=== PATIENT | male | born 1950 | race Caucasian/White ===

== ENCOUNTER → 2022-08-20 | Outpatient (CLI) | payer MEDICARE, SELFPAY ==
--- NOTE | 2022-08-20 | PROSBIL_PTH ---
PATIENT: ELIZABETH HE LOC: [facility] U#:[id number] AGE/SX: 72/M ROOM: RE08/20/[address]: Dr. Bogdan Miller MD : 1950 BED: DIS: 08/20/2022 SPEC #: [id number] RECD: 08/20/22 16:13 STATUS: MARIA G BURNETTE #: [id number] AYLIN: 08/20/22 00:[address]: Bogdan Miller DEPT: SURGICAL PATHOLOGY RECD BY: Alayna Islas Tissues: A - PROSTATE RIGHT B - PROSTATE RIGHT C - PROSTATE RIGHT D - PROSTATE LEFT E - PROSTATE LEFT F - PROSTATE LEFT Procedures: PROSTATE BX HEADER OPERATION: Prostate biopsy PRE-OP DIAGNOSIS: Elevated PSA TISSUE SUBMITTED: A - Right apex, B - Right mid, C - Right base, D - Left apex, E - Left mid, F - Left base MICROSCOPIC DIAGNOSIS A. Right prostate, apex, core biopsy: Chronic inflammation and focal glandular atrophy. See comment. B. Right prostate, mid, core biopsy: Chronic inflammation and focal glandular atrophy. C. Right prostate, base, core biopsy: Chronic inflammation and glandular atrophy. See comment. D. Left prostate, apex, core biopsy: Chronic inflammation and glandular atrophy. E. Left prostate, mid, core biopsy: Chronic inflammation with focal acute inflammation. Glandular atrophy. See comment. F. Left prostate, base, core biopsy: Chronic inflammation and glandular atrophy. AM:lala 08/22/2022 COMMENT A, C & E - Immunohistochemistry ([id number]) supports the above diagnosis. MICROSCOPIC DESCRIPTION Slides are reviewed. GROSS DESCRIPTION A - Received is one container designated prostate, right apex. The specimen consists of two elongated fragments of light aguilar-white soft tissue each measuring 1.5 cm in length and 0.1 cm in diameter. The specimen is totally submitted in one cassette. B - Received is one container designated prostate, right mid. The specimen consists of four elongated fragments of light aguilar-white soft tissue measuring 0.5 to 0.7 cm in length and 0.1 cm in diameter. The specimen is totally submitted in one cassette. C - Received is one container designated prostate, right base. The specimen consists of two elongated fragments of light aguilar-white soft tissue each measuring 1 cm in length and 0.1 cm in diameter. The specimen is totally submitted in one cassette. D - Received is one container designated prostate, left apex. The specimen consists of two elongated fragments of light aguilar-white soft tissue each measuring 1.4 cm in length and 0.1 cm in diameter. The specimen is totally submitted in one cassette. E - Received is one container designated prostate, left mid. The specimen consists of two elongated fragments of light aguilar-white soft tissue each measuring 1.3 cm in length and 0.1 cm in diameter. The specimen is totally submitted in one cassette. F - Received is one container designated prostate, left base. The specimen consists of two elongated fragments of light aguilar-white soft tissue each measuring 1 cm in length and 0.1 cm in diameter. The specimen is totally submitted in one cassette. / SJ:rg 08/21/2022 TC:3 CPT: G0146
--- NOTE | 2022-08-20 | IMM_PTH ---
PATIENT: ELIZABETH HE LOC: [facility] U#:[id number] AGE/SX: 72/M ROOM: RE08/20/[address]: Dr. Bogdan Miller MD : 1950 BED: DIS: 08/20/2022 SPEC #: [id number] RECD: 08/22/22 12:17 STATUS: MARIA G REWanda #: [id number] AYLIN: 08/20/22 00:[address]: Bogdan Miller DEPT: IMMUNOHISTOCHEMISTRY RECD BY: Temitope Andino Tissues: A - PROSTATE RIGHT C - PROSTATE RIGHT E - PROSTATE LEFT Procedures: 34BE12 (add) P40 (add) 34BE12 (initial) PHYSICIAN & INSTITUTION [place] [address] SPECIMEN INFORMATION: Tissue Source: A - Right prostate, apex, C - Right prostate, base, E - Left prostate, mid Clinical Info: Elevated PSA Specimen Number: [id number] A, C & E CPT code: 20837, 61407 x5 METHODOLOGY: Deparaffinized sections of prefer/formalin-fixed tissue or PAP/DQ stained slides are incubated with monoclonal/polyclonal antibodies/oligonucleotide probes. Localization is made via biotin free immunoperoxidase method. Appropriate controls are performed and reacted as expected. Results on target cell population are indicated in the following table: RESULTS: ANTIBODY / CLONE RESULT Block A 34BE12 (34BE12) positive P40 (BC28) positive Block C 34BE12 (34BE12) positive P40 (BC28) positive Block E 34BE12 (34BE12) positive P40 (BC28) positive These tests were developed and their performance characteristics determined by [facility]. They may not have been cleared or approved by the [place] Food and Drug Administration. The FDA has determined that such clearance or approval is not necessary. The above immunohistochemical/dualISH markers are ordered and reviewed by the Pathologist. INTERPRETATION: A. Right prostate, apex, core biopsy: Benign prostatic tissue. C. Right prostate, base, core biopsy: Benign prostatic tissue. E. Left prostate, mid, core biopsy: Benign prostatic tissue. AM:lala 08/23/2022
== END | disposition home or self-care (01) ==
PROVIDERS: Visit Provider Urology
DX: R97.20 Elevated prostate specific antigen [PSA] (principal)
CPT/HCPCS: 88305; 88341; 88342; G0416